=== PATIENT | male | born 1990 | race African-American/Black ===

== ENCOUNTER 2019-03-18 17:47 | Emergency (ER) | payer OTHER ==
[~2019-03-18] VITALS: Ht 175.3 cm; Wt 79.1 kg
[2019-03-18] MEDS ORDERED: KETOROLAC10 MG PO (20:31)
[2019-03-18 20:43] VITALS: BP 118/76
== END 2019-03-18 20:48 | disposition home or self-care (01) ==
LOC: ED 17:47
DX: T14.8XXA Other injury of unspecified body region, initial encounter (principal); V89.2XXA Person injured in unspecified motor-vehicle accident, traffic, initial encounter
CPT/HCPCS: J1885

== ENCOUNTER → 2019-03-19 | Outpatient (CLI) | payer OTHER ==
[2019-03-18 20:43] VITALS: BP 118/76
[~2019-03-19] MED LIST: KETOROLAC10 MG PO
== END ==
LOC: LAB 09:22
DX: Z51.81 Encounter for therapeutic drug level monitoring (principal); Z79.891 Long term (current) use of opiate analgesic; V89.2XXA Person injured in unspecified motor-vehicle accident, traffic, initial encounter